=== PATIENT | female | born 1975 | race Two or more races ===

== ENCOUNTER 2016-11-07 12:45 | Emergency (ER) | payer MEDICAID ==
[~2016-11-07] VITALS: Ht 162.6 cm; Wt 92.5 kg
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
--- NOTE | 2016-11-07 13:12 | NUR ---
URINE SAMPLE COLLECTED SENT TO LAB
--- NOTE | 2016-11-07 13:15 | NUR ---
dr bustos at bedside for eval
[2016-11-07 13:30] LABS: EOSINOPHILS # (AUTO) 0.1 /CMM (0.0-0.7)
[2016-11-07 13:32] LABS: BASOPHILS # (AUTO) 0.3 /CMM (0.0-0.2); BASOPHILS % (AUTO) 2.5 % (0.0-2.0); EOSINOPHILS % (AUTO) 0.5 % (0.0-6.0); HEMATOCRIT 41 % (33-45); HEMOGLOBIN 13.5 g/dL (11.5-14.8); LYMPHOCYTES # (AUTO) 2.3 /CMM (0.8-4.8); MEAN CORPUSCULAR HEMOGLOBIN 28 PG (26.0-33.0); MEAN CORPUSCULAR HGB CONC 33 g/dl (31.0-36.0); MEAN CORPUSCULAR VOLUME 85 fL (82-100); MONOCYTES # (AUTO) 0.9 /CMM (0.1-1.30); MONOCYTES % (AUTO) 6.6 % (2.0-12.0); NEUTROPHILS # (AUTO) 9.9 /CMM (1.8-8.9); NEUTROPHILS % (AUTO) 73.4 % (43.0-81.0); PLATELET COUNT (AUTO) 564 /CMM (150-450); RDW COEFFICIENT OF VARIATION 13.7 (11.5-15.0); RED BLOOD CELL COUNT(AUTO) 4.86 MIL/uL (4.0-5.2); WHITE BLOOD COUNT (AUTO) 13.5 K/uL (4.3-11.0)
[2016-11-07 13:37] LABS: CALCIUM, SERUM 9.2 mg/dL (8.5-10.1); CARBON DIOXIDE 24 mmol/L (21-32); CHLORIDE 104 mmol/L (98-107); GLUCOSE 101 mg/dL (74-106); POTASSIUM 3.5 mmol/L (3.5-5.1); SODIUM SERUM 142 mmol/L (136-145); UREA NITROGEN, BLOOD 20 mg/dL (7-18)
[2016-11-07 13:43] LABS: ALANINE AMINOTRANSFERASE 19 U/L (12-78); ALBUMIN 4.2 g/dL (3.4-5.0); ALCOHOL, BLOOD < 3 mg/dL (0-0); ALKALINE PHOSPHATASE 115 U/L (46-116); ASPARTATE AMINOTRANSFERASE 21 U/L (15-37); BILIRUBIN,DIRECT 0.2 mg/dL (0.0-0.2); SALICYLATE 1.6 mg/dL (2.8-20.0); TOTAL PROTEIN, SERUM 8.5 g/dL (6.4-8.2)
[2016-11-07 13:44] LABS: ACETAMINOPHEN 0 ug/ml (10-30)
--- NOTE | 2016-11-07 13:48 | NUR ---
PT STATES SHE IS SEEKING VOLUNTARY PLACEMENT BUT DOES NOT WANT TO RETURN TO [facility].
[2016-11-07 13:54] LABS: APPEARANCE,URINE Slightly Cloudy (CLEAR); BILIRUBIN,URINE Negative (NEGATIVE); BLOOD, URINE Negative Ery/uL (NEGATIVE); KETONES,URINE 40 (NEGATIVE); LEUKOCYTE ESTERASE ,URINE Negative (NEGATIVE); NITRITE, URINE Negative (NEGATIVE); PH,URINE 5.5 (5.0-8.0); PROTEIN,URINE 30 mg/dl (NEGATIVE); UGLUCOSE Negative (NEGATIVE); UROBILINOGEN,URINE 0.2 EU/dL (0.2)
[2016-11-07 13:55] LABS: COLOR,URINE Dark Yellow (YELLOW); PREGNANCY TEST URINE QUAL NEGATIVE (NEGATIVE)
[2016-11-07 14:00] LABS: BACTERIA,URINE Rare /HPF (None Seen); MUCUS,URINE Few /LPF (None Seen); RBC,URINE 0-3 /HPF (0-2); SQUAMOUS EPITHELIAL CELL,UR Few /HPF (None Seen)
--- NOTE | 2016-11-07 14:09 | NUR ---
CALLED TRANSMISSION INSPECTOR ART WAS PAGED.
--- NOTE | 2016-11-07 15:00 | NUR ---
RESTING QUIETLY, NAD NOTED. ALL NEEDS ATTENDED TO.
--- NOTE | 2016-11-07 17:53 | NUR ---
RESTING QUIETLY, NAD NOTED. CALLED FOR DINNER TRAY.
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
--- NOTE | 2016-11-07 19:48 | NUR ---
PINKY AT BEDSIDE
--- NOTE | 2016-11-07 20:00 | NUR ---
PT NOW RESTING CALMLY AND QUIETLY ON 1 POINT RESTRAINT. REID RN PRESENT FOR EVAL. GIVEN FOOD AND WATER PER PT REQUEST. VSS.
[2016-11-07] MEDS ORDERED: LORAZEPAM 1 MG TABLET ONE (21:54)
--- NOTE | 2016-11-07 21:58 | NUR ---
SPOKE WITH FARRAH MATHEWS. PER OSMAR MATHEWS AUTHORIZED TAXI VOUCHER TO [facility] PAID FOR BY THE PT'S MOTHER. OBTAINED TAXI VOUCHER FROM [employer] AND GIVEN TO MAI MARCOS.
--- NOTE | 2016-11-07 22:05 | NUR ---
MEDICATED PER MD. PT COOPERATIVE AND VERBALIZES UNDERSTANDING OF PLAN OF CARE.
--- NOTE | 2016-11-07 22:17 | NUR ---
Patient discharged VIA TAXI TO [facility] in stable condition. Written and verbal after care instructions given. Patient verbalizes understanding of instruction.
[2016-11-07 22:20] VITALS: BP 149/95
[2016-11-07] MEDS ORDERED: LORAZEPAM 1 MG TABLET PO ONE (22:30)
== END 2016-11-07 22:20 | disposition home or self-care (01) ==
LOC: ER 12:48
DX: R45.851 Suicidal ideations (principal); F32.9 Major depressive disorder, single episode, unspecified; F43.10 Post-traumatic stress disorder, unspecified
CPT/HCPCS: 36415; 80048; 80076; 80305; 80329; 81001; 84703; 85025; 99284; A4606; G0480 ×2; Z7610; 81000-TC